=== PATIENT | male | born 1980 | race Caucasian/White ===

== ENCOUNTER 2023-05-24 07:50 | Outpatient (CLI) | payer OTHER, SELFPAY ==
[2023-05-24 08:41] LABS: Calculated LDL 93 mg/dL (<100); Cholesterol 164 mg/dL (<200); HDL Cholesterol 55 mg/dL (40-60); Triglyceride 83 mg/dL (<150)
[2023-05-24 09:54] LABS: Hemoglobin A1C 5.1 % (<5.7)
[2023-05-24 12:17] LABS: Uric Acid 4.8 mg/dL (3.5-7.2)
== END 2023-05-24 07:51 | disposition home or self-care (01) ==
LOC: LBO 07:51
PROVIDERS: PCP Nurse Practitioner Family; Visit Provider Nurse Practitioner Family
DX: Z13.220 Encounter for screening for lipoid disorders (principal); Z13.1 Encounter for screening for diabetes mellitus; M10.9 Gout, unspecified
CPT/HCPCS: 36415; 80061; 83036; 84550